=== PATIENT | male | born 1970 | race American Indian/Alaskan Native ===

== ENCOUNTER 2018-09-09 10:33 | Emergency (ER) | payer OTHER ==
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
[2018-09-09 13:57] VITALS: BP 121/68
== END 2018-09-09 13:56 | disposition home or self-care (01) ==
LOC: ED 10:33
DX: J70.5 Respiratory conditions due to smoke inhalation (principal); R05 Cough; Z87.891 Personal history of nicotine dependence
CPT/HCPCS: 71045; 82375